=== PATIENT | female | born 1955 | race Caucasian/White ===

== ENCOUNTER 2025-02-03 10:59 | Emergency (ER) | payer MEDICARE, OTHER, SELFPAY ==
[2025-02-03 11:03] VITALS: BP 160/96; PULSE 96; TEMP 36.7; O2SAT 95; BMI 25.8
--- NOTE | 2025-02-03 11:14 | ECG_ITS ---
[facility] Test Date: 2025-02-03 Pat Name: LUCINDA LEE Department: Room: - Gender: Female Snout Puller: : 1955 Requested By: [id number] Order Number: [id number] Reading MD: STEWART HAQ M.D. Measurements Intervals [place] Rate: 84 P: 45 ID: [id number] QRS: 32 QRSD: 80 T: 46 QT: 378 QTc: 418 Interpretive Statements 1100 Sinus rhythm 9110 normal ECG No previous ECG available for comparison Electronically Signed On 02-03-2025 21:45:30 EDT by STEWART HAQ M.D.
--- NOTE | 2025-02-03 11:15 | ED_ITS ---
HPI HPI - General Adult General Chief complaint: Weakness Stated complaint: WEAKNESS Time Seen by Provider: 02/03/25 11:03 Source: patient Mode of arrival: walk-in History of Present Illness HPI narrative: 69-year-old female presents to the emergency department for weakness and cough. She had the flu about a month ago and that seemed to have stopped. She never felt 100% back to her normal however and that she has been weak. She was around a family member who had a cough now she has been coughing but it has been nonproductive. No recent vomiting or diarrhea. She has not had fever. Related Data Home Medications ?Medication ?Instructions ?Recorded ?Confirmed amlodipine 5 mg tablet 5 mg PO DAILY 02/03/25 02/03/25 ergocalciferol (vitamin D2) 1,250 1,250 mcg PO DAILY 02/03/25 02/03/25 mcg (50,000 unit) capsule fluoxetine 60 mg tablet 60 mg PO DAILY 02/03/25 02/03/25 fluticasone propionate 50 2 spray intranasal DAILY 02/03/25 02/03/25 mcg/actuation nasal spray,suspension rosuvastatin 10 mg tablet 10 mg PO DAILY 02/03/25 02/03/25 Allergies Allergy/AdvReac Type Severity Reaction Status Date / Time No Known Drug Allergies Allergy Verified 02/03/25 11:07 Opioid HPI Opioid Management Most Recent Opioid Data: No Data to Display Review of Systems ROS Narrative A ten point review of systems is negative except as noted above. [facility] Medical History (Updated 02/03/25 @ 12:19 by Rickie Blank MD) HTN (hypertension) ?I10 - Essential (primary) hypertension (ICD-10) Surgical History (Updated 02/03/25 @ 11:12 by Lily Zamarripa) H/O: hysterectomy ?Z90.710 - Acquired absence of both cervix and uterus (ICD-10) Social History Little interest or pleasure in doing things: not at all Feeling down, depressed, or hopeless: not at all Exam Narrative Exam Narrative: Nurses note and vital signs reviewed and patient is not hypoxic. General: The patient appears well and in no apparent distress. Patient is resting comfortably on cart. Skin: Warm, dry, no pallor noted. There is no rash noted. Head: Normocephalic, atraumatic Eye: Normal conjunctiva, no drainage Ears, Nose, Mouth, and Throat: oral mucosa is moist. Nares patent. Cardiovascular: Regular Rate and Rhythm Respiratory: Patient is in no distress, no accessory muscle use, lungs are clear to auscultation, no wheezing, rales or rhonchi Back: non-tender GI: Soft and nontender Musculoskeletal: The patient has no evidence of calf tenderness, no pitting edema, symmetrical pulses noted bilaterally Neurological: A&O, normal speech Psychiatric: Cooperative Constitutional Vital Signs, click to edit/add: Last Vital Signs Temp 98.0 F 02/03/25 11:03 Pulse 96 H 02/03/25 11:03 Resp 16 02/03/25 11:03 BP 160/96 H 02/03/25 11:03 Pulse Ox 95 02/03/25 11:03 O2 Del Method Room Air 02/03/25 11:03 Course Vital Signs Vital signs: Vital Signs Temperature 98.0 F 02/03/25 11:03 Pulse Rate 96 H 02/03/25 11:03 Respiratory Rate 16 02/03/25 11:03 Blood Pressure 160/96 H 02/03/25 11:03 Pulse Oximetry 95 02/03/25 11:03 Oxygen Delivery Method Room Air 02/03/25 11:03 Temperature 98.0 F 02/03/25 11:03 Pulse Rate 96 H 02/03/25 11:03 Respiratory Rate 16 02/03/25 11:03 Blood Pressure 160/96 H 02/03/25 11:03 Pulse Oximetry 95 02/03/25 11:03 Oxygen Delivery Method Room Air 02/03/25 11:03 Medical Decision Making MDM Narrative Medical decision making narrative: Her workup is negative including chest x-ray, COVID, influenza and urinalysis. Blood work is negative as well. My clinical impression is that she has a viral illness. Treatment diagnosis and follow-up were discussed with the patient. Differential Diagnosis Differential Diagnosis: Viral illness, dehydration, COVID, influenza, pneumonia, UTI Lab Data Lab results reviewed: Yes I reviewed the patient's lab results Labs: Lab Results 02/03/25 02/03/25 02/03/25 Range/Units 11:18 11:23 11:30 WBC 10.4 (4.0-11.0) 10^3/uL RBC 4.48 (4.20-5.40) 10^6/uL Hgb 13.6 (12.0-16.0) g/dL Hct 39.7 (36.0-48.0) % MCV 88.6 (81.0-99.0) fL MCH 30.4 (26.7-34.0) pg MCHC 34.3 (29.9-35.2) g/dL RDW 12.4 (11.0-15.0) % Plt Count 271 (150-450) 10^3/uL MPV 10.0 (9.5-13.5) fL Neut % (Auto) 69.0 (43.0-75.0) % Lymph % (Auto) 18.4 L (20.5-60.0) % [place] % (Auto) 8.3 (1.7-12.0) % Eos % (Auto) 3.4 (0.9-7.0) % Baso % (Auto) 0.6 (0.2-2.0) % Neut # (Auto) 7.2 H (1.4-6.5) 10^3/uL Lymph # (Auto) 1.9 (1.2-3.8) 10^3/uL [place] # (Auto) 0.9 H (0.3-0.8) 10^3/uL Eos # (Auto) 0.4 (0.0-0.7) 10^3/uL Baso # (Auto) 0.1 (0.0-0.1) 10^3/uL Abs Immat Gran (auto) 0.03 (0.00-0.03) 10^3/uL Imm/Tot Granulo (auto) 0.3 (0.0-0.5) % Sodium 142 (136-145) mmol/L Potassium 3.9 (3.5-5.1) mmol/L Chloride 104 (98-107) mmol/L Carbon Dioxide 29.4 (21.0-32.0) mmol/L Anion Gap 12.5 BUN 14.0 (7.0-18.0) mg/dL Creatinine 0.71 (0.55-1.02) mg/dL Est GFR ( Amer) >60 (>=60 mL/min/1.73m^2) Est GFR (Non-Af Amer) >60 (>=60 mL/min/1.73m^2) BUN/Creatinine Ratio 19.7 Glucose 85 (74-106) mg/dL Calcium 8.7 (8.5-10.1) mg/dL Urine Color Lt. yellow (YELLOW) Urine Clarity Clear (CLEAR) Urine pH 6.5 (5.0-9.0) Ur Specific [place] 1.020 (1.005-1.025) Urine Protein Negative (NEG/TRACE) mg/dL Urine Glucose (UA) Negative (NEGATIVE) mg/dL Urine Ketones Negative (NEGATIVE) mg/dL Urine Occult Blood Negative (NEGATIVE) Urine Nitrite Negative (NEGATIVE) Urine Bilirubin Negative (NEGATIVE) Urine Urobilinogen 0.2 (0.2-1.0) EU/dL Ur Leukocyte Esterase Trace A (NEGATIVE) Urine RBC None seen (0-2) #/HPF Urine WBC 0-2 A (NONE SEEN) #/HPF Ur Squamous Epith Cells Few A (NONE/RARE) #/LPF Urine Crystals None seen (None Seen) #/HPF Urine Bacteria Trace A (NONE SEEN) #/HPF Urine Casts None seen (NONE SEEN) #/LPF Urine Mucus Trace A (NONE SEEN) Ur Culture Indicated? No Influenza Type A Ag Negative Influenza Type B Ag Negative SARS-CoV-2 Ag (CV2AG) Negative (NEGATIVE) Imaging Data Chest x-ray: Radiologist's impression: No consolidation, no pulmonary edema, pleural effusion, or pneumothorax ECG Data Attestation: I personally reviewed and interpreted this ECG as follows: (EKG on my interpretation shows sinus rhythm with rate of 84 no acute change) Discharge Plan Discharge Chief Complaint: Weakness Clinical Impression: Viral syndrome Patient Disposition: Home, Self-Care Time of Disposition Decision: 12:19 Condition: Good Mode of Transportation: Private Vehicle Prescriptions / Home Meds: No Action amlodipine 5 mg tablet 5 mg PO DAILY ergocalciferol (vitamin D2) 1,250 mcg (50,000 unit) capsule 1,250 mcg PO DAILY fluoxetine 60 mg tablet 60 mg PO DAILY fluticasone propionate 50 mcg/actuation spray,suspension 2 spray INTRANASAL DAILY rosuvastatin 10 mg tablet 10 mg PO DAILY Print Language: [place] Instructions: Viral Syndrome (ED) Referrals: SEAN SOMMERS [Primary Care Provider] - 1 week
[2025-02-03] MEDS: 0.9 % SODIUM CHLORIDE 500 ML IV (11:30)
[2025-02-03 11:34] LABS: Basophils Absolute Auto 0.1 10^3/uL (0.0-0.1); Basophils Percent Auto 0.6 % (0.2-2.0); Eosinophils Absolute Auto 0.4 10^3/uL (0.0-0.7); Eosinophils Percent Auto 3.4 % (0.9-7.0); Hematocrit 39.7 % (36.0-48.0); Hemoglobin 13.6 g/dL (12.0-16.0); Immature Granulocytes Abs Auto 0.03 10^3/uL (0.00-0.03); Immature Granulocytes Pct Auto 0.3 % (0.0-0.5); Lymphocytes Absolute Auto 1.9 10^3/uL (1.2-3.8); Lymphocytes Percent Auto 18.4 % (20.5-60.0); Mean Corpuscular HGB Conc 34.3 g/dL (29.9-35.2); Mean Corpuscular Hemoglobin 30.4 pg (26.7-34.0); Mean Corpuscular Volume 88.6 fL (81.0-99.0); Monocytes Absolute Auto 0.9 10^3/uL (0.3-0.8); Monocytes Percent Auto 8.3 % (1.7-12.0); Neutrophils Absolute Auto 7.2 10^3/uL (1.4-6.5); Platelet Count 271 10^3/uL (150-450); Red Blood Count 4.48 10^6/uL (4.20-5.40); Red Cell Distribution Width 12.4 % (11.0-15.0); White Blood Count 10.4 10^3/uL (4.0-11.0)
[2025-02-03 11:36] LABS: Bilirubin Urine NEGATIVE (NEGATIVE); Blood Urine NEGATIVE (NEGATIVE); Clarity Urine CLEAR (CLEAR); Color Urine LT. YELLOW (YELLOW); Glucose Urine UA NEGATIVE (NEGATIVE); Ketones Urine NEGATIVE (NEGATIVE); Leukocyte Esterase Urine TRACE (NEGATIVE); Nitrite Urine NEGATIVE (NEGATIVE); Protein Urine NEGATIVE (NEG/TRACE); Urobilinogen Urine 0.2 EU/dL (0.2-1.0); pH Urine 6.5 (5.0-9.0)
[2025-02-03 11:40] LABS: Anion Gap 12.5; BUN Creatinine Ratio 19.7; Calcium 8.7 mg/dL (8.5-10.1); Carbon Dioxide 29.4 mmol/L (21.0-32.0); Chloride 104 mmol/L (98-107); Estimated GFR (African America >60 (>=60 mL/min/1.73m^2); Estimated GFR (Non-African Ame >60 (>=60 mL/min/1.73m^2); Glucose 85 mg/dL (74-106); Potassium 3.9 mmol/L (3.5-5.1); Sodium 142 mmol/L (136-145)
[2025-02-03 11:43] LABS: Bacteria Urine TRACE #/HPF (NONE SEEN); Cast Seen? NONE SEEN #/LPF (NONE SEEN); Crystals Seen? None Seen #/HPF (None Seen); Mucus Urine TRACE (NONE SEEN); RBC Urine NONE SEEN #/HPF (0-2); Squamous Epithelial Cell Urine FEW #/LPF (NONE/RARE); Urine Culture Indicated NO; WBC Urine 0-2 #/HPF (NONE SEEN)
[2025-02-03 11:44] LABS: Influenza Virus A Antigen Negative; Influenza Virus B Antigen Negative; Internal Control Within Normal Limits; SARS-CoV-2 Ag NEGATIVE (NEGATIVE)
[2025-02-03 12:29] VITALS: BP 144/92; PULSE 80; O2SAT 94
== END 2025-02-03 12:31 | disposition home or self-care (01) ==
PROVIDERS: Emergency Provider Emergency Medicine; PCP Family Medicine
DX: B34.9 Viral infection, unspecified (principal); Z90.710 Acquired absence of both cervix and uterus
CPT/HCPCS: 36415; 71045; 80048; 81001; 85025; 87804; 87811; 93005; 99285